=== PATIENT | male | born 1980 | race Hispanic/Latino ===

== ENCOUNTER 2023-09-10 13:14 | Emergency (ER) | payer SELFPAY ==
[2023-09-10 13:28] VITALS: BP 101/50; PULSE 85; RESP 16; TEMP 37.2; O2SAT 100
--- NOTE | 2023-09-10 13:41 | ECG_ITS ---
Test Date: 2023-09-10 13:52:28 Measurements Intervals [place] Rate: 91 P: 51 OR: 132 QRS: 8 QRSD: 86 T: 22 QT: 354 QTc: 438 Interpretive Statements SINUS RHYTHM NORMAL ELECTROCARDIOGRAM No previous ECG available for comparison Electronically Signed On 09-10-2023 17:17:10 CDT by Paul Boss M.D.
--- NOTE | 2023-09-10 14:03 | ED.GENADULT ---
HPI - General Adult General Chief complaint: Unspecified Stated complaint: tired,fast heartbeat Time Seen by Provider: 09/10/23 13:33 Source: patient, family (Daughter) and RN notes reviewed Mode of arrival: ambulatory Limitations: no limitations History of Present Illness HPI narrative: Patient presents today complaining of a 2 week history of fatigue, shortness of breath, dizziness with decreased appetite, heart racing. Symptoms are only present with exertion and are not currently present. Denies chest pain, nausea or vomiting, abdominal pain, recent illnesses. Denies history of asthma or any pulmonary or cardiac issues. Patient is a former smoker. No [id number] treatment for symptoms since onset. Related Data Home Medications Medication Instructions Recorded Confirmed No Home Medications 09/10/23 09/10/23 Allergies Allergy/AdvReac Type Severity Reaction Status Date / Time No Known Allergies Allergy Verified 09/10/23 13:41 Review of Systems Review of Systems: CONSTITUTIONAL: Denies body aches, fever, chills, or sweats.+ fatigue EYES: Denies visual changes, redness, or discharge. ENT: Denies rhinorrhea, congestion, sore throat, or otalgia. CARDIOVASCULAR: Denies chest pain, palpitations, or edema.+ right RESPIRATORY: Denies cough. + shortness of breath GASTROINTESTINAL: Denies abdominal pain, nausea, vomiting, or diarrhea.+ decreased appetite GENITOURINARY: Denies dysuria or hematuria. SKIN: Denies rash, itching, or wounds. MUSCULOSKELETAL: Denies back pain, joint pain, or myalgia. NEUROLOGIC: Denies headache, numbness, tingling, or weakness.+ dizziness PSYCH: Denies depression or anxiety. PMFSH Social History Social History (Updated 09/10/23 @ 20:07 by Dunia Rios, [facility], ) Smoking status: Former smoker Comments At time of signature, I have reviewed and agree with nursing past medical, surgical, social and family history unless otherwise noted. Please see nursing chart for further information. There is no relevant family history pertinent to the presenting complaint Exam Narrative: GENERAL: Well-appearing, well-nourished, and in no acute distress. HEAD: Normocephalic, atraumatic. EYES: EOMI. PERRL. No redness or drainage. Conjunctivae normal. ENT: Mucous membranes pink and moist. NECK: Normal AROM. Supple. No lymphadenopathy. CHEST: No respiratory distress. Clear to auscultation. HEART: Regular rate and rhythm. No murmur appreciated. Normal peripheral pulses. ABDOMEN: Soft, nontender, nondistended, normal active bowel sounds. EXTREMITIES: Normal range of motion. No edema. SKIN: Warm, dry, no rash. Capillary refill normal. Normal skin turgor. NEURO: No focal deficits. Alert and oriented x3. Gait steady. PSYCH: Normal affect. No signs of depression or anxiety. Course Course Level of Care: Express Care Visit Vital Signs Vital signs: Vital Signs Temperature 98.9 F 09/10/23 13:28 Pulse Rate 85 09/10/23 13:28 Respiratory Rate 16 09/10/23 13:28 Blood Pressure 101/50 L 09/10/23 13:28 Pulse Oximetry 100 09/10/23 13:28 Oxygen Delivery Room Air 09/10/23 13:28 Temperature 98.9 F 09/10/23 13:28 Pulse Rate 85 09/10/23 13:28 Respiratory Rate 16 09/10/23 13:28 Blood Pressure 101/50 L 09/10/23 13:28 Pulse Oximetry 100 09/10/23 13:28 Oxygen Delivery Room Air 09/10/23 13:28 Reviewed Medical Decision Making MDM Narrative Medical decision making narrative: EKG normal sinus rhythm. Recommend ER transfer for further evaluation of patient's symptoms. At this time he declines transfer. Patient will sign out AMA. Differential Diagnosis Differential Diagnosis: Dehydration, heat exhaustion, electrolyte imbalance, hypothyroidism Vital Signs Vital Signs: Vital Signs Temperature 98.9 F 09/10/23 13:28 Pulse Rate 85 09/10/23 13:28 Respiratory Rate 16 09/10/23 13:28 Blood Pressure 101/50 L 09/10/23 13:28 Pulse Oximetry
== END 2023-09-10 14:06 | disposition left against medical advice (07) ==
PROVIDERS: Emergency Provider Nurse Practitioner
DX: R06.09 Other forms of dyspnea (principal); Z87.891 Personal history of nicotine dependence
CPT/HCPCS: 93005; 99203; G0463